=== PATIENT | female | born 1975 | race Caucasian/White ===

== ENCOUNTER 2019-01-19 13:19 | Emergency (ER) | payer BC, OTHER ==
[2019-01-19 13:48] VITALS: BP 166/109
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
== END 2019-01-19 14:26 | disposition home or self-care (01) ==
LOC: UCCORT 13:19
DX: S06.0X0A Concussion without loss of consciousness, initial encounter (principal); S13.4XXA Sprain of ligaments of cervical spine, initial encounter; V43.62XA Car passenger injured in collision with other type car in traffic accident, initial encounter; Y92.410 Unspecified street and highway as the place of occurrence of the external cause; Z88.2 Allergy status to sulfonamides
CPT/HCPCS: 99201; G0463